=== PATIENT | male | born 2000 | race Caucasian/White ===

== ENCOUNTER 2018-12-12 13:12 | Emergency (ER) | payer SELFPAY ==
[2018-12-12 15:06] VITALS: BP 150/71
[2018-12-12] MEDS ORDERED: Tetan/Diph/Pertus SYR(Tdap)* 0.5 ML SYR(BOOSTRIX) use SYR IM ONE (15:14)
--- NOTE | 2018-12-12 15:16 | UC ---
General HPI - HPI Summary HPI Summary: pinched his L middle finger between a cow and board yesterday. his boilermaker apprentice put a small hole in the nail with a needle and drained some blood. c/o pain/swelling to the tip of the finger. needs a tetanus. - History of Current Complaint Chief Complaint: UCUpperExtremity Stated Complaint: LEFT HAND FINGER INJ Time Seen by Provider: 12/12/18 15:09 Hx Obtained From: Patient Onset/Duration: Sudden Onset Timing: Constant Pain Intensity: 9 Associated Signs & Symptoms: Negative: Fever - Allergy/Home Medications Allergies/Adverse Reactions: Allergies Allergy/AdvReac Type Severity Reaction Status Date / Time azithromycin Allergy Rash Verified 12/12/18 15:07 Home Medications: Home Medications Ibuprofen TAB* [Advil TAB*] 400 mg PO Q6H PRN 12/12/18 [History Confirmed ] PMH/Surg Hx/FS Hx/Imm Hx Previously Healthy: Yes - Surgical History Surgical History: None - Family History Known Family History: Positive: Hypertension - Social History Occupation: Employed Full-time Alcohol Use: None Substance Use Type: None Smoking Status (MU): Never Smoked Tobacco Review of Systems All Other Systems Reviewed And Are Negative: Yes Musculoskeletal: Positive: Edema - L middle finger Physical Exam Triage Information Reviewed: Yes Appearance: Well-Appearing Vital Signs: Initial Vital Signs Temp 99.4 F 12/12/18 14:56 Pulse 72 12/12/18 14:56 Resp 14 12/12/18 14:56 BP 150/71 12/12/18 14:56 Pulse Ox 100 12/12/18 14:56 Vital Signs Reviewed: Yes Eyes: Positive: Conjunctiva Clear Respiratory: Positive: Lungs clear Cardiovascular: Positive: RRR Abdomen Description: Positive: Nontender Musculoskeletal: Positive: Other: - L middle finger with mild swelling and tenderness to tip. Large subungual hematoma. grss s/v is intact. rest of hand with no injury. Diagnostics - Radiology No standard instances Radiology Interpretation Completed By: Radiologist - REPORT AND IMPRESSION: L middle finger. Soft tissue swelling greatest over the dorsal aspect distally corresponding with the provided history. No conspicuous foreign body or soft tissue gas collection evident. Negative for fracture or malalignment. Course/Dx - Course Course Of Treatment: PROCEDURE BY THIS PA. TIME OUT. NAIL PREP BETADINE. CAUTERY STICK USED TO BUR HOLE IN NAIL. MODERATE BLOOD DRAINED. FINGER SOAKED IN SOAPY WATER. ANTIBIOTIC OINTMENT TO THE SITE THEN BANDAGE APPLIED. NO HX HTN. BP VISIT/PAIN RELATED. PT ADVISED OF POSSIBLE LOSS OF THE INJURED NAIL. - Differential Dx - Multi-Symptom Differential Diagnoses: Other - no fx. no infection - Diagnoses Provider Diagnosis: Subungual hematoma of finger of left hand Discharge - Sign-Out/Discharge Documenting (check all that apply): Patient Departure All imaging exams completed and their final reports reviewed: Yes - Discharge Plan Condition: Stable Disposition: HOME Patient Education Materials: Subungual Hematoma (ED) Referrals: Fortino Xavier MD [Primary Care Provider] - If Needed - Billing Disposition and Condition Condition: STABLE Disposition: Home - Attestation Statements Provider Attestation: I was available for consult. This patient was seen by the LOREN. The patient was not presented to, seen by, or examined by me. -Eunice
== END 2018-12-12 15:56 | disposition home or self-care (01) ==
LOC: UCCORT 13:12
DX: S60.132A Contusion of left middle finger with damage to nail, initial encounter (principal); I10 Essential (primary) hypertension; W23.0XXA Caught, crushed, jammed, or pinched between moving objects, initial encounter; Y92.9 Unspecified place or not applicable; Z88.1 Allergy status to other antibiotic agents; Z79.899 Other long term (current) drug therapy
CPT/HCPCS: 11740; 73140; 90471; 90715; 99211; G0463

== ENCOUNTER 2019-04-15 17:01 | Emergency (ER) | payer OTHER ==
[2019-04-15 17:54] VITALS: BP 122/72
--- NOTE | 2019-04-15 17:59 | UC ---
UC General HPI - HPI Summary HPI Summary: RN notes triage - Pt had a cold two weeks ago, has had a cough since, and in the last few days has been coughing up blood clots and streaked mucous Pleasant 18 yo gentleman presents with c/o coldlike uri sx, starting approx 11+ days ago -cough, achy, felt sick, fatigue. Sx improved, now has lots of energy but cough persists. Concerned b/c approx 4 days ago has been coughing up bloody sputum. Some nasal drainage too, blood tinged. No fever / chills. No n /v/d. No melena / brbpr. No urinary sx. No rash other than sunburn and possible recent fungal dermatitis (? not sure, better now). Fam hx sign dm, cardiac, but no blood dyscrasia / cancer. Some anterior achyness with cough. No recent travel out of the country. Works on a farm, recent college graduate. + Hx asthma, but inhaler . - History of Current Complaint Chief Complaint: UCRespiratory Stated Complaint: BLOOD WHEN COUGHING Time Seen by Provider: 04/15/19 17:58 Hx Obtained From: Patient, Other: - girlfriend Pain Intensity: 0 - Allergy/Home Medications Allergies/Adverse Reactions: Allergies Allergy/AdvReac Type Severity Reaction Status Date / Time azithromycin Allergy Rash Verified 04/15/19 17:55 Home Medications: Home Medications guaiFENesin ER TAB [Mucinex*] 600 mg PO BID 04/15/19 [History Confirmed 04/15/19 ] PMH/Surg Hx/FS Hx/Imm Hx Previously Healthy: Yes - Surgical History Surgical History: None - Family History Known Family History: Positive: Hypertension - Social History Alcohol Use: Weekly Substance Use Type: Marijuana Smoking Status (MU): Never Smoked Tobacco Review of Systems All Other Systems Reviewed And Are Negative: Yes Constitutional: Positive: Other - see hpi Skin: Positive: Other - see hpi Eyes: Positive: Other - see hpi ENT: Positive: Other - see hpi Respiratory: Positive: Cough, Other - see hpi Cardiovascular: Positive: Other - see hpi Gastrointestinal: Positive: Other - see hpi Motor: Positive: Other - see hpi Neurovascular: Positive: Other Musculoskeletal: Positive: Other: - see hpi Neurological: Positive: Negative Psychological: Positive: Negative Is Patient Immunocompromised?: No Physical Exam Triage Information Reviewed: Yes Appearance: Well-Appearing - sitting up, conversing easily and appropriately. nad., Well-Nourished Vital Signs: Initial Vital Signs Temp 98.0 F 04/15/19 17:49 Pulse 61 04/15/19 17:49 Resp 16 04/15/19 17:49 BP 122/72 04/15/19 17:49 Pulse Ox 100 04/15/19 17:49 Eye Exam: Normal ENT: Positive: TM dull - TMs dull, [place], rtx'd au., Other - mild post pharyng redness, c/w cough / post nasal drip Neck exam: Normal Neck: Positive: Supple, Nontender, No Lymphadenopathy Respiratory Exam: Normal Respiratory: Positive: Chest non-tender, Lungs clear, Normal breath sounds, No respiratory distress, No accessory muscle use Cardiovascular Exam: Normal Cardiovascular: Positive: RRR, No Murmur, Pulses Normal, Brisk Capillary Refill Abdominal Exam: Normal Abdomen Description: Positive: Nontender Musculoskeletal Exam: Normal Musculoskeletal: Positive: Strength Intact Neurological Exam: Normal Psychological Exam: Normal Skin Exam: Normal Course/Dx - Course Course Of Treatment: Xray reviewed after completion. Several areas of small round areas, end-on bronchioles vs other. V-rad reading requested. Report reviewed with pt and girlfriend. (nad) Proctor to f/u with PCP elton. Will call tomorrow. To ED if worse. Blood work today. Advised no smoke. Hydrate. Rx augmentin, albuterol. Reviewed coa / tx plan. Questions as posed answered to the best of my ability. - Diagnoses Provider Diagnosis: Bronchitis, Hemoptysis Discharge - Sign-Out/Discharge Documenting (check all that apply): Patient Departure All imaging exams completed and their final reports reviewed: No - Discharge Plan Condition: Stable Disposition: HOME Prescriptions: Albuterol 2.5MG/3ML (0.083%)* [Ventolin 2.5 MG/3 ML NEB.DAVID*] 2.5 mg INH Q6H #1 neb.david Albuterol HFA INHALER* [Ventolin HFA Inhaler*] 1 - 2 puff INH Q6H PRN #1 mdi PRN Reason: Wheezing Amoxicillin/Clavulanate TAB* [Augmentin TAB 875*] 875 mg PO BID #19 tab Patient Education Materials: Acute Bronchitis (ED), Hemoptysis (ED) Referrals: Fortino Xavier MD [Primary Care Provider] - Additional Instructions: Please follow up with your primary care physician - call tomorrow for appointment tomorrow or early next week. 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 Please go to the Emergency Department for any problems, worse or new symptoms. Avoid smoking. Hydrate. Probiotic and / or yogurt daily. - Billing Disposition and Condition Condition: STABLE Disposition: Home
[2019-04-15] MEDS ORDERED: Amoxicillin/Clavulanate TAB* 875 MG PO ONE (20:01)
--- NOTE | 2019-04-16 11:40 | UC ---
- Progress Note Progress Note: RADIOLOGY REPORT REVIEWED. CONFIRMS NO ACUTE CARDIOPULMONARY DISEASE OR OTHER ACUTE FINDING. NO CHANGE IN MANAGEMENT Course/Dx - Diagnoses Provider Diagnoses: Bronchitis, Hemoptysis Discharge - Sign-Out/Discharge Documenting (check all that apply): Post-Discharge Follow Up All imaging exams completed and their final reports reviewed: Yes - Discharge Plan Condition: Stable Disposition: HOME Prescriptions: Albuterol 2.5MG/3ML (0.083%)* [Ventolin 2.5 MG/3 ML NEB.DAVID*] 2.5 mg INH Q6H #1 neb.david Albuterol HFA INHALER* [Ventolin HFA Inhaler*] 1 - 2 puff INH Q6H PRN #1 mdi PRN Reason: Wheezing Amoxicillin/Clavulanate TAB* [Augmentin TAB 875*] 875 mg PO BID #19 tab Patient Education Materials: Acute Bronchitis (ED), Hemoptysis (ED) Referrals: Fortino Xavier MD [Primary Care Provider] - Additional Instructions: Please follow up with your primary care physician - call tomorrow for appointment tomorrow or early next week. Consider bisque kiln placer. Please go to the Emergency Department for any problems, worse or new symptoms. Avoid smoking. Hydrate. Probiotic and / or yogurt daily. - Billing Disposition and Condition Condition: STABLE Disposition: Home
[2019-04-16 13:30] LABS: ABS Basophils 0.1 10^3/ul (0-0.2); ABS Eosinophils 0.3 10^3/ul (0-0.6); ABS Monocytes 0.8 10^3/ul (0-0.8); ABS Neutrophils 5.9 10^3/ul (1.5-7.7); Eosinophil % 2.9 %; Hematocrit 44 % (42-52); Hemoglobin 14.9 g/dL (14.0-18.0); Lymphocyte % 29.8 %; Mean Corpuscular HGB Conc 34 g/dL (31-36); Mean Corpuscular Hemoglobin 30 pg (27-31); Mean Corpuscular Volume 88 fL (80-94); Nucleated Red Blood Cells % 0.3; Red Blood Count 4.96 10^6 /uL (4.18-5.48); Red Cell Distribution Width 13 % (10-15)
[2019-04-16 14:39] LABS: Platelet Count Platelets clumped. 10^3/uL (150-450)
[2019-04-16 15:29] LABS: Albumin 5.4 g/dL (3.2-5.2); Anion Gap 13 mmol/L (2-11); CO2 Carbon Dioxide 26 mmol/L (22-32); Calcium 10.5 mg/dL (8.6-10.3); Chloride 102 mmol/L (101-111); Potassium 4.4 mmol/L (3.5-5.0); Sodium 141 mmol/L (135-145)
[2019-04-16 15:35] LABS: ALT 12 U/L (7-52); AST 15 U/L (13-39); Albumin/Globulin Ratio 1.6 (1-3); Alkaline Phosphatase 74 U/L (34-104); BUN/Creatinine Ratio 18.1 (8-20); Blood Urea Nitrogen 17 mg/dL (6-24); C Reactive Protein < 1.00 mg/L (<8.01); EGFR African American 123.8 (>60); EGFR Non-African American 102.3 (>60); Globulin 3.3 g/dL (2-4); Glucose 92 mg/dL (70-100); Total Protein 8.7 g/dL (6.4-8.9)
[2019-04-16 17:40] LABS: Erythrocyte Sed Rate 4 mm/Hr (0-14)
== END 2019-04-15 20:24 | disposition home or self-care (01) ==
LOC: UCEAST 17:01
DX: J40 Bronchitis, not specified as acute or chronic (principal); R04.2 Hemoptysis
CPT/HCPCS: 36415; 71046; 80053; 85025; 85652; 86140; 99212; A9270-GY; G0463